=== PATIENT | male | born 1955 | race Hispanic/Latino ===

== ENCOUNTER → 2019-05-05 | Outpatient (CLI) | payer OTHER ==
[~2019-05-05] MED LIST: ASPI-1197 PO; ATOR20TA65 PO; LOSA25TA41 PO
== END | disposition home or self-care (01) ==
LOC: SHCH 10:00
PROVIDERS: ATTEND Internal Medicine Cardiovascular Disease
DX: I65.23 Occlusion and stenosis of bilateral carotid arteries (principal)
CPT/HCPCS: 93880

== ENCOUNTER 2024-10-05 07:29 | Emergency (ER) | payer OTHER ==
[~2024-10-05] VITALS: Ht 170.2 cm; Wt 74.8 kg
--- NOTE | 2024-10-05 07:36 | ERN ---
General Chief Complaint: Abdominal Pain Stated Complaint: ABDOMINAL PAIN Time Seen by MD: 07:32 Source: patient History of Present Illness Initial Comments 69-year-old male coming in to be evaluated for right inguinal pain. Patient states that he was told a year and a half ago he had a right inguinal hernia. He states he is wearing brief which has helped in the past but has a earlier today the pain intensified. He also states that he feels as if the hernia is not going down as usual. No fever no chills no nausea no vomiting. Allergies: Coded Allergies: No Known Drug Allergies (Unverified Allergy, 09/25/13) Home Meds Reported Medications Aspirin (Aspirin) 81 Mg Tab.chew, 81 MG PO HS, TAB.CHEW 11/12/15 Losartan Potassium (Losartan Potassium) 25 Mg Tablet, 25 MG PO HS, TAB 11/12/15 Atorvastatin Calcium (Atorvastatin Calcium) 20 Mg Tablet, 20 MG PO HS, TAB 11/12/15 Past Medical History Past Medical History: High Cholesterol, Hypertension, Other Medical History Other: RT INGUINAL HERNIA Past Surgical History: Other ROS Dictation CONSTITUTIONAL: No chills, no fever, no weakness, no diaphoresis, no malaise. HEAD/FACE: No signs of trauma. EENT: No eye pain, no blurred vision, no tearing, no double vision, no ear pain, no ear discharge, no nose pain, no nasal congestion, no throat pain, no throat swelling, no mouth pain. RESPIRATORY: No cough, no orthopnea, no SOB, no stridor, no wheezing. CARDIOVASCULAR: No chest pain, no edema, no palpitations, no syncope. GASTROINTESTINAL/ABDOMINAL: No abdominal pain, no constipation, no diarrhea, no nausea, no vomiting. GENITOURINARY: No abnormal discharge, no dysuria, no frequent urination, no hematuria. No complaints of pain in the genitals. MUSCULOSKELETAL: No back pain, no gout, no joint pain, no joint swelling, no muscle pain, no muscle stiffness, no neck pain. INTEGUMENTARY: No change in color, no change in hair/nails, no dryness, no lesion, no lumps, no rash. NEUROLOGICAL/PSYCH: No anxiety, not depressed, no emotional problem, no headache, no numbness, no pre-existing deficit, no history of seizures, no tremors, no weakness. HEMATOLOGIC/LYMPHATIC: Not anemic, no history of blood clots, no apparent bleeding, no bruising, glands not swollen. All Systems Negative, Except as Noted. Physical Exam Physical Exam Dictation VITAL SIGNS: Reviewed. GENERAL APPEARANCE: Alert, oriented x3, no acute distress, obese. HEAD AND FACE: Non-traumatic. EYES: PERRL, pink conjunctivas, eyelid no trauma, anterior chamber clear. EARS: Pinnas intact and no signs of trauma or erythema. Ear canals clear and no discharge. TMs no erythema. NOSE: No discharge, no bleeding. OROPHARYNX: Mouth normal, teeth no caries, tongue pink. Pharynx clear, no erythema. Tonsils no exudates, no abscesses noted. Mucous membrane moist. NECK: Supple, non-tender, no thyromegaly, no masses, no JVD, no bruits. BREAST: Deferred. CHEST: No tenderness, no crepitus, no paradoxical movement, no retractions. LUNGS: Clear, well-ventilated, symmetric, no rales, no wheezing, no rhonchi, no stridor, good breath sounds bilaterally. HEART: Regular rate, regular rhythm, no murmur, no gallops. VASCULAR: No peripheral edema. ABDOMEN: Soft, positive bowel sounds, nondistended, no guarding, nontender, no rebound, no masses no hepatomegaly, no splenomegaly, no Sloan's sign, no hernias. RECTAL: Deferred. GENITAL: Chaperoned By nurse Onofre , right inguinal hernia reducible NEUROLOGICAL: Normal speech, gross motor function intact, gross sensory function intact. MUSCULOSKELETAL: Neck nontender, full range of motion, back nontender, full range of motion. EXTREMITIES: Nontender, full range of motion. SKIN: Color pink, dry, no turgor, no rash, no lacerations, no abrasions, no contusions. LYMPHATICS: Deferred. Results Laboratory and Microbiology Labs Reviewed?: Yes EKG/XRAY/US/CT/MRI Ultrasound Comment [facility] [address] [place] [id number] IMAGING REPORT Signed PATIENT: AICHA GREGG MR#: [id number] : 1955 SEX: M AGE: 69 LOCATION: ED ORDER [id number] STATUS: REG ER REPORT#: [id number] SERVICE 3 REASON: r inguinal hernia ORDERING PHYSICIAN: JOVANNY BARRETO MD PROCEDURE: SOFT GROIN - US SOFT TISSUE GROIN US SOFT TISSUE GROIN REASON: r inguinal hernia. COMPARISON: None TECHNIQUE: Right groin ultrasound study was performed. FINDINGS: There is right inguinal hernia with bowel content and fat content measuring 13.5 x 5.7 x 8.4 cm. IMPRESSION: Right inguinal hernia with fat and bowel content. DICTATED BY: RACHEL MELLO MD DATE: 10/05/24847 ELECTRONICALLY SIGNED BY: RACHEL MELLO MD DATE: 10/05/24851 MDM MDM: Differential diagnosis: Inguinal hernia, window pain, Rationale: Tests considered and ordered secondary to shared decision making include: Previous outside records reviewed: Old ER visits. Risk of complication and/or morbidity or mortality of patient management: None Patient is a 69-year-old male coming in to be evaluated for right inguinal discomfort. He was told that he had a hernia a year and a half ago. He states he has not followed up with the PCP or surgeon in regards to this case. On physical exam the hernia was reducible. Ultrasound did disclose a hernia with some bowel components in it. I advised him appropriate follow up with surgeon since the hernia was reducible. ED Course Orders Procedure Category Date Status Time Acetaminophen 500mg PHA 10/05/24 Complete Tab (Tylenol 500mg T 08:00 Us Soft Tissue Groin US 10/05/24 Resulted 07:34 Current Medications Medications (Trade) Dose Ordered Sig/Lilian Route PRN Reason Start Time Stop Time Status Last Admin Dose Admin Acetaminophen (TYLenol 500MG TAB) 1,000 mg ONCE ONCE PO 10/05/24 08:00 10/05/24 08:01 DC Vital Signs Date Time Temp Pulse Resp B/P (MAP) Pulse Ox O2 Delivery O2 Flow Rate FiO2 10/05/24 07:32 97.3 61 20 161/62 99 Room Air DX & DISP Disposition: Discharge Departure Impression: Primary Impression: Right inguinal hernia Condition: Stable Additional Instructions: FOLLOW-UP WITH PRIMARY CARE PROVIDER IN 1 TO 2 DAYS. TAKE MEDICATIONS DIRECTED HERE IN THE EMERGENCY ROOM. OKAY TO CONTINUE HOME MEDICATIONS UNLESS OTHERWISE DISCUSSED DURING YOUR VISIT IN THE EMERGENCY ROOM TODAY. RETURN TO YOUR NEAREST EMERGENCY ROOM IF SYMPTOMS WORSEN OR IF THERE IS NO IMPROVEMENT. CALL 911 IF YOU NEED IMMEDIATE ASSISTANCE. TAKE TYLENOL [id number] NEEDED AND IF NO CONTRAINDICATIONS ARE PRESENT. INCREASE ORAL HYDRATION. A WOUND CULTURE OR URINE CULTURE WAS ORDERED HERE IN THE EMERGENCY ROOM DEPARTMENT PLEASE FOLLOW-UP WITH PRIMARY CARE PROVIDER AND ADVISE THEM TO GET REPEAT PORTS FROM OUR FACILITY. IF YOU HAD ANY STEVE WRAP/SPLINTS THAT WERE APPLIED HERE, PLEASE DO NOT REMOVE THEM UNTIL YOU SEE YOUR PRIMARY CARE OR SPECIALTY. Referrals: Referrals: MEGAN LEGER MD (PCP) TRAVIS HARMON MD Time of Disposition: 09:02 JOVANNY BARRETO MD Oct 05, 2024 07:36
--- NOTE | 2024-10-05 08:52 | HMCIMG ---
US SOFT TISSUE GROIN REASON: r inguinal hernia. COMPARISON: None TECHNIQUE: Right groin ultrasound study was performed. FINDINGS: There is right inguinal hernia with bowel content and fat content measuring 13.5 x 5.7 x 8.4 cm. IMPRESSION: Right inguinal hernia with fat and bowel content.
[2024-10-05] MEDS ORDERED: NAPR-1194 PO (09:05)
--- NOTE | 2024-10-05 09:30 | NUR ---
PT PLACED IN [facility] NOW
[2024-10-05] MEDS: acetaMINOPHEN 500 MG TABLET PO ONE (10:00)
[2024-10-05 10:15] VITALS: BP 135/65; PULSE 65; RESP 16; TEMP 98; O2SAT 97
== END 2024-10-05 10:29 | disposition home or self-care (01) ==
LOC: EDH 07:29
DX: K40.90 Unilateral inguinal hernia, without obstruction or gangrene, not specified as recurrent (principal); E78.00 Pure hypercholesterolemia, unspecified; I10 Essential (primary) hypertension; Z79.82 Long term (current) use of aspirin; Z79.899 Other long term (current) drug therapy
CPT/HCPCS: 76882; 99284